=== PATIENT | male | born 1985 | race African-American/Black ===

== ENCOUNTER 2018-03-18 15:59 | Outpatient (CLI) | payer BC ==
[2018-03-18 18:05] LABS: Hemoglobin 16.6 g/dL (14.0-18.0); Mean Corpuscular HGB CONC 33.3 g/dL (32.0-36.0); Mean Corpuscular Hemoglobin 29.3 pg (27.0-31.0); Mean Platelet Volume 7.8 fL (7.4-10.4); Platelet Count 278 thou/uL (130-400); RBC Distribution Width 11.6 % (11.5-14.5); Red Blood Cell (RBC) Count 5.65 mill/uL (4.70-6.10); White Blood Cell (WBC) Count 8.6 thou/uL (4.8-10.8)
[2018-03-18 18:26] LABS: Anion Gap 14 mmol/L (10-20); BUN (Urea Nitrogen) 16 mg/dL (8.9-20.6); Calc. Creatinine Clearance 0 mL/min (70-130); Calcium 9.6 mg/dL (7.8-10.44); Carbon Dioxide 24 mmol/L (22-29); Chloride 105 mmol/L (98-107); Estimated GFR-MDRD 89; Glucose 85 mg/dL (70-105); Sodium 139 mmol/L (136-145)
== END 2018-03-18 16:00 | disposition home or self-care (01) ==
LOC: LABBT 15:59
PROVIDERS: ATTEND Podiatrist Foot & Ankle Surgery
DX: Z01.812 Encounter for preprocedural laboratory examination (principal); M21.6X1 Other acquired deformities of right foot
CPT/HCPCS: 80048; 85027

== ENCOUNTER 2018-03-22 07:31 | Day surgery (SDC) | payer BC ==
[2018-03-18 16:52] VITALS: BMI 33.2
[2018-03-22] MEDS ORDERED: Glycopyrrolate 0.2 MG/ML 5 ML SYRINGE ONE (07:50)
[2018-03-22] MEDS ORDERED: Lidocaine 1% PF 5 ML VIAL ONE (07:50)
[2018-03-22] MEDS ORDERED: PROPOFOL 200 MG/20 ML VIAL ONE (07:50)
[2018-03-22] MEDS ORDERED: Dexamethasone 20 MG/5 ML VIAL ONE (07:50)
[2018-03-22] MEDS ORDERED: Ondansetron PF 4 MG/2 ML Vial ONE (07:50)
[2018-03-22] MEDS ORDERED: Ketorolac Tromethamine 30 MG/ML VIAL ONE (07:50)
[2018-03-22] MEDS ORDERED: Metoclopramide HCl 10 MG/2 ML VIAL ONE (07:50)
[2018-03-22] MEDS ORDERED: CEFAZOLIN 2 GM/50 ML BAG ONE (08:17)
[2018-03-22] MEDS ORDERED: Bacitracin Zinc Ointment 30 gm TUBE ONE (08:18)
[2018-03-22] MEDS ORDERED: Bupivacaine PF 0.5% 30 ML VIAL ONE (08:18)
[2018-03-22] MEDS ORDERED: Midazolam HCl 2 mg/2 ml Vial ONE ×2 (08:38→09:01)
[2018-03-22] MEDS ORDERED: Fentanyl 100 MCG/2 ML VIAL ONE ×2 (08:38→08:45)
[2018-03-22] MEDS ORDERED: Morphine 10 MG/ML VIAL ONE (11:02)
[2018-03-22] MEDS ORDERED: Ropivacaine HCl/PF 750 ML in Premix Bag 1 BAG NERVE BLCK SCH (11:15)
--- NOTE | 2018-03-22 12:29 | RAD ---
RIGHT HEEL 2 VIEWS: HISTORY: Fracture. COMPARISON: None. FINDINGS: A single spot image was sent for interpretation. Total fluoroscopy time was 11.2 seconds. IMPRESSION: Fluoroscopy for surgical use. POS: [facility]
--- NOTE | 2018-03-24 21:27 | OP ---
DATE OF PROCEDURE: 03/22/2018 PREOPERATIVE DIAGNOSES: 1. Matthew's deformity, right foot. 2. Retrocalcaneal exostosis, right foot. 3. Achilles tendinitis, right foot. 4. Pain, right foot. POSTOPERATIVE DIAGNOSES: 1. Matthew's deformity, right foot. 2. Retrocalcaneal exostosis, right foot. 3. Achilles tendinitis, right foot. 4. Pain, right foot. PROCEDURES PERFORMED: Resection of retrocalcaneal exostosis, right foot with detachment and reattachment of achilles tendon utilizing Arthrex anchors. INJECTABLES: 30 mL of 0.5% Marcaine plain. MATERIALS: Four absorbable Arthrex SwiveLock anchors with FiberWire. SUTURES: 2-0 Vicryl, 3-0 Vicryl, and 3-0 Prolene. HEMOSTASIS: Pneumatic thigh tourniquet at 300 mmHg. ESTIMATED BLOOD LOSS: Less than 5 mL. DESCRIPTION OF PROCEDURE: The patient was brought into the operating room, placed on the operating table in a prone position following administration of general anesthesia. The foot was then scrubbed, prepped, and draped in the usual aseptic manner. Esmarch bandage was used to exsanguinate the patient's right foot and pneumatic thigh tourniquet was then inflated to 300 mmHg, which provided adequate hemostasis throughout the entire procedure. Next, attention was then directed to the posterior aspect of the patient's right heel, where a 7-cm linear longitudinal incision was made over the dorsal aspect of the calcaneus at the midline of the heel. The incision was deepened through the subcuticular structures with care being taken to retract all vital neurovascular structures. All bleeders were cauterized as necessary. Upon adequate exposure of the retrocalcaneal exostosis, it was carefully resected and passed from the operative field. was used to assure that no remaining bony prominences were remained, none were noted at this time. Next, the posterior calcaneus was then burred smooth on all angles. The wound was irrigated with copious amount of sterile normal saline Next, SwiveLock anchors were then placed containing FiberTape through the first two of the dorsal 2 holes. The suture was then went through the achilles tendon and crisscrossed and anchored back into place in the posterior holes forming a suture bridge. The wound was then irrigated with copious amount of sterile normal saline . The incision was irrigated with copious amount of sterile normal saline and the deep tissues were then closed utilizing 2-0 Prolene. The subcuticular tissues were closed utilizing 2-0 Vicryl and 3-0 Vicryl. The skin was then closed utilizing 3-0 Prolene and a horizontal matrix suture pattern. Two ON-Q pain catheters, 2.5 inches in length, were placed on each side of the achilles tendon and they were primed utilizing normal saline. They will be attached to a 700 mL ON-Q ball with 0.2% ropivacaine plain. dressing was placed about the patient's right foot and pneumatic tourniquet was released with prompt hyperemic response noted to all digits of the right foot. A well-padded posterior splint was then placed about the patient's right lower leg. DISCHARGE SUMMARY: The patient tolerated the procedure and anesthesia and was transferred to the recovery room with vital signs stable and vascular status intact to all the digits of the right foot. Following a period of postoperative monitoring, the patient is to be discharged home. Should he have problems prior to the first postoperative within 1 week of the procedure. Job ID: [id number]
== END 2018-03-22 16:00 | disposition home or self-care (01) ==
LOC: SDC 07:31
PROVIDERS: ATTEND Podiatrist Foot & Ankle Surgery
PROC: 0LQN0ZZ Repair Right Lower Leg Tendon, Open Approach (ICD-10-PCS; principal; 2018-03-22)
PROC: 0QBL0ZZ Excision of Right Tarsal, Open Approach (ICD-10-PCS; principal; 2018-03-22)
DX: M76.61 Achilles tendinitis, right leg (principal); D16.31 Benign neoplasm of short bones of right lower limb
CPT/HCPCS: 76001; C1713; J1100; J1885; J2001; J2250; J2270; J2405; J2704; J2765; J2795; J3010; S0020